=== PATIENT | male | born 1960 | race Caucasian/White ===

== ENCOUNTER 2022-04-24 14:31 | Inpatient (IN) | payer BC, OTHER ==
[2022-04-24] MEDS ORDERED: SODIUM CHLORIDE 0.9% 500 ML 500 ML IV STA (15:51)
[2022-04-24] MEDS ORDERED: ACETAMINOPHEN TAB 500 MG TAB PO STA (15:52)
[2022-04-24] MEDS ORDERED: IBUPROFEN 600 MG TAB PO STA (15:52)
--- NOTE | 2022-04-24 15:55 | ED ---
General Adult HPI - General Chief complaint: Abdominal Pain Stated complaint: ABD pain right side Time Seen by Provider: 04/24/22 15:45 Source: patient, RN notes reviewed, old records reviewed Mode of arrival: ambulatory Limitations: no limitations - History of Present Illness Initial comments: This is a 61-year-old male who presents emergency Department complaining of right lower quadrant abdominal pain. Patient states it started yesterday about 10:00 while he was in a meeting initially thought he was constipated but the pain is been persistent since and eating progressively worse per patient states the pain radiates a little bit down into his right testicle but it is not significant. Patient denies any dysuria hematuria urinary frequency. Patient has any radiation to the back. Patient denies any upper abdominal pain. Patient any vomiting or diarrhea. Patient denies any recent cough. Patient states he did difficulty vaccine but did not get any blisters. - Related Data Home Medications Medication Instructions Recorded Confirmed Enalapril [Vasotec] 5 mg PO DAILY 12/15/14 04/24/22 Dulaglutide [Trulicity] 0.75 mg SQ MO 04/24/22 04/24/22 metFORMIN HCL 500 mg PO DIRECTED 04/24/22 04/24/22 Allergies Allergy/AdvReac Type Severity Reaction Status Date / Time No Known Allergies Allergy Verified 04/24/22 16:45 Review of Systems ROS Statement: Those systems with pertinent positive or pertinent negative responses have been documented in the HPI. ROS Other: All systems not noted in ROS Statement are negative. Past Medical History Past Medical History: Diabetes Mellitus, Hyperlipidemia, Hypertension History of Any Multi-Drug Resistant Organisms: None Reported Past Surgical History: No Surgical Hx Reported Past Psychological History: No Psychological Hx Reported Smoking Status: Never smoker Past Alcohol Use History: Rare Past Drug Use History: None Reported General Exam - General Exam Comments Initial Comments: GENERAL: Patient is well-developed and well-nourished. Patient is nontoxic and well- hydrated and is in no acute distress. ENT: Neck is soft and supple. No significant lymphadenopathy is noted. Oropharynx is clear. Moist mucous membranes. Neck has full range of motion without eliciting any pain. EYES: The sclera were anicteric and conjunctiva were pink and moist. Extraocular movements were intact and pupils were equal round and reactive to light. Eyelids were unremarkable. PULMONARY: Unlabored respirations. Good breath sounds bilaterally. No audible rales rhonchi or wheezing was noted. CARDIOVASCULAR: There is a regular rate and rhythm without any murmurs gallops or rubs. ABDOMEN: Patient has right lower quadrant tenderness and some rebound. SKIN: Skin is clear with no lesions or rashes and otherwise unremarkable. NEUROLOGIC: Patient is alert and oriented x3. Cranial nerves II through XII are grossly intact. Motor and sensory are also intact. Normal speech, volume and content. Symmetrical smile. MUSCULOSKELETAL: Normal extremities with adequate strength and full range of motion. LYMPHATICS: No significant lymphadenopathy is noted PSYCHIATRIC: Normal psychiatric evaluation. Limitations: no limitations Course Vital Signs 04/24/22 14:59 Temperature 101.1 F H Pulse Rate 103 H Respiratory 16 Rate Blood Pressure 126/73 O2 Sat by Pulse 99 Oximetry Medical Decision Making - Medical Decision Making Computed tomography scan shows acute uncomplicated appendicitis. I started the patient on Zosyn. I spoke to Dr. Parekh she agreed to admit the patient admitted the patient wrote admitting orders. - Lab Data Result diagrams: 04/24/22 15:45 04/24/22 15:45 Lab Results 04/24/22 04/24/22 Range/Units 15:45 15:45 WBC 16.2 H (3.8-10.6) k/uL RBC 5.21 (4.30-5.90) m/uL Hgb 14.8 (13.0-17.5) gm/dL Hct 44.4 (39.0-53.0) % MCV 85.3 (80.0-100.0) fL MCH 28.3 (25.0-35.0) pg MCHC 33.2 (31.0-37.0) g/dL RDW 12.8 (11.5-15.5) % Plt Count 195 (150-450) k/uL MPV 8.7 Neutrophils % 87 % Lymphocytes % 6 % Monocytes % 6 % Eosinophils % 1 % Basophils % 0 % Neutrophils # 14.1 H (1.3-7.7) k/uL Lymphocytes # 0.9 L (1.0-4.8) k/uL Monocytes # 0.9 (0-1.0) k/uL Eosinophils # 0.1 (0-0.7) k/uL Basophils # 0.0 (0-0.2) k/uL Sodium 139 (137-145) mmol/L Potassium 4.3 (3.5-5.1) mmol/L Chloride 100 (98-107) mmol/L Carbon Dioxide 24 (22-30) mmol/L Anion Gap 15 mmol/L BUN 15 (9-20) mg/dL Creatinine 0.98 (0.66-1.25) mg/dL Est GFR (CKD-EPI)AfAm >90 (>60 ml/min/1.73 sqM) Est GFR (CKD-EPI)NonAf 83 (>60 ml/min/1.73 sqM) Glucose 166 H (74-99) mg/dL Calcium 9.6 (8.4-10.2) mg/dL Total Bilirubin 0.9 (0.2-1.3) mg/dL AST 30 (17-59) U/L ALT 31 (4-49) U/L Alkaline Phosphatase 62 (38-126) U/L Total Protein 7.8 (6.3-8.2) g/dL Albumin 4.7 (3.5-5.0) g/dL Amylase 56 (30-110) U/L Lipase 128 (23-300) U/L Disposition Clinical Impression: Acute appendicitis Disposition: ADMITTED IP TO THIS HOSP Referrals: Sana Bustamante MD [Primary Care Provider] - 1-2 days Time of Disposition: 18:01
[2022-04-24 16:21] LABS: Basophils % (A) 0 %; Eosinophils # (A) 0.1 k/uL (0-0.7); Eosinophils % (A) 1 %; HCT 44.4 % (39.0-53.0); HGB 14.8 gm/dL (13.0-17.5); Lymphocytes # (A) 0.9 k/uL (1.0-4.8); Lymphocytes % (A) 6 %; MCH 28.3 pg (25.0-35.0); MCHC 33.2 g/dL (31.0-37.0); MCV 85.3 fL (80.0-100.0); Mean Platelet Volume 8.7; Monocytes # (A) 0.9 k/uL (0-1.0); Monocytes % (A) 6 %; Neutrophils # (A) 14.1 k/uL (1.3-7.7); Neutrophils % (A) 87 %; Platelet Count 195 k/uL (150-450); RBC 5.21 m/uL (4.30-5.90); RDW 12.8 % (11.5-15.5); WBC 16.2 k/uL (3.8-10.6)
[2022-04-24 16:35] LABS: ALT 31 U/L (4-49); AST 30 U/L (17-59); African American GFR (CKD) >90 (>60 ml/min/1.73 sqM); Albumin 4.7 g/dL (3.5-5.0); Alkaline Phosphatase 62 U/L (38-126); Amylase 56 U/L (30-110); Anion Gap 15 mmol/L; Blood Urea Nitrogen 15 mg/dL (9-20); Calcium 9.6 mg/dL (8.4-10.2); Carbon Dioxide 24 mmol/L (22-30); Chloride 100 mmol/L (98-107); Glucose 166 mg/dL (74-99); Lipase 128 U/L (23-300); Non-African American GFR(CKD) 83 (>60 ml/min/1.73 sqM); Potassium 4.3 mmol/L (3.5-5.1); Sodium 139 mmol/L (137-145); Total Bilirubin 0.9 mg/dL (0.2-1.3); Total Protein 7.8 g/dL (6.3-8.2)
--- NOTE | 2022-04-24 17:32 | CT ---
EXAMINATION TYPE: CT abdomen pelvis w con CT DLP: 1158.2 mGycm, Automated exposure control for dose reduction was used. DATE OF EXAM: 04/24/2022 5:13 PM COMPARISON: None CLINICAL INDICATION:Male, 61 years old with history of abdominal pain; lower right abdominal pain TECHNIQUE: Axial CT of the abdomen and pelvis. Sagittal and coronal reformats were created on a [employer] workstation. Contrast used:100 mL of Isovue 300 with IV Contrast, Oral contrast used: without Oral Contrast FINDINGS: LOWER CHEST: Unremarkable ABDOMEN LIVER: Diffusely hypoattenuating parenchyma. GALLBLADDER AND BILE DUCTS: Unremarkable. PANCREAS: Unremarkable. SPLEEN: Unremarkable. ADRENAL GLANDS: Unremarkable. KIDNEYS AND URETERS: No evidence of hydronephrosis or renal calculus. The ureters are unremarkable. PELVIS BLADDER: Unremarkable REPRODUCTIVE: Prostate is enlarged in size measuring 6.7 cm in transverse dimension. ABDOMEN & PELVIS STOMACH AND BOWEL: Inflammation changes are seen within the right lower quadrant surrounding the appe ndix with the appendix dilated measuring up to 13 mm with feces within the appendix. There is a large appendicolith measuring up to 11 mm at the base of the appendix. PERITONEUM: No evidence of pneumoperitoneum or free fluid. VASCULATURE: No evidence of aortic aneurysm. MUSCULOSKELETAL: No acute osseous abnormalities, mild multilevel disc degeneration changes. LYMPH NODES: No gross evidence for lymphadenopathy. SOFT TISSUE/ABDOMINAL WALL: Unremarkable IMPRESSION: 1. Acute uncomplicated appendicitis with 10 mm appendicolith at the base. 2. Hepatic steatosis. 3. Prostatomegaly.
[2022-04-24] MEDS ORDERED: PIPERACILLIN-TAZOBACTAM 3.375 GM in SODIUM CHLORIDE 0.9% 100 ML IVPB STA (17:56)
[2022-04-24] MEDS ORDERED: SODIUM CHLORIDE 0.9% 1,000 ML IV ONE (18:01)
[2022-04-24] MEDS ORDERED: ACETAMINOPHEN IV (For NPO) 1,000 MG in EMPTY BAG 1 BAG IVPB ONE (18:40)
[2022-04-24] MEDS ORDERED: NALOXONE 0.4 MG/ML 1 ML VIAL IV PRN (18:40)
[2022-04-24] MEDS ORDERED: ONDANSETRON 4 MG/2 ML VIAL IVP PRN (18:40)
[2022-04-24] MEDS ORDERED: HYDROmorphone 0.5 MG/0.5 ML SYRINGE IVP PRN (18:40)
[2022-04-24 19:02] LABS: Appearance,Urine Clear (Clear); Bilirubin,Urine Negative (Negative); Blood,Urine Negative (Negative); Color,Urine Yellow; Glucose,Urine (UA) 3+ (Negative); Ketones,Urine 1+ (Negative); Leukocyte Esterase,Urine Negative (Negative); Mucus,Urine Occasional /hpf; Nitrite,Urine Negative (Negative); PH, Urine 5.5 (5.0-8.0); Protein,Urine 1+ (Negative); RBC,Urine 1 /hpf (0-5); Specific Gravity,Urine 1.014 (1.001-1.035); Urobilinogen,Urine <2.0 mg/dL (<2.0); WBC,Urine <1 /hpf (0-5)
--- NOTE | 2022-04-24 19:05 | P.GSHP ---
History of Present Illness H&P Date: 04/24/22 CHIEF COMPLAINT: Right lower quadrant abdominal pain with appendicitis for 2 days HISTORY OF PRESENT ILLNESS: The patient is a 61-year-old male who presents with over 1.5 day history of periumbilical with right lower quadrant abdominal pain that is crampy dull ache in nature. No reports of prior abdominal pain. He states the intensity of the pain is moderate but has improved today. He presented with CT abdomen and pelvis consistent with dilated appendix suspicious for appendicitis hence general surgery admission. PAST MEDICAL HISTORY: See list and reviewed PAST SURGICAL HISTORY: See list and reviewed CURRENT MEDICATIONS: See list and reviewed ALLERGIES: See list and reviewed SOCIAL HISTORY: See list and reviewed FAMILY HISTORY: See list and reviewed REVIEW OF ORGAN SYSTEMS: CONSTITUTIONAL: Present fever, no chills. Denies recent weight loss. HEENT: Denies any trouble with vision, hearing or nosebleeds. No difficulty swallowing. LYMPHATIC: The patient denies any lumps and bumps around the neck. ENDOCRINE: Denies any thyroid disorders. Diabetes type 2 [id number]-sfohevaad RESPIRATORY: Denies shortness of breath including chronic cough. CARDIOVASCULAR: Denies history of chest pain with exertion. Has hypertension. GASTROINTESTINAL: Denies regurgitation of bile at night as well as intermittent nausea. No blood in stools. GENITOURINARY: Denies any blood in urine or increased urinary frequency. MUSCULOSKELETAL: Denies current joint arthritis. NEUROLOGIC: Denies any numbness or tingling along the distal extremities. No seizure disorders or headaches. PSYCHIATRIC: Denies any depression or suicidal ideation. HEMATOLOGIC: Denies any abnormal bleeding or bruising. PHYSICAL EXAMINATION: VITALS: Reviewed. GENERAL: Well-developed and in no acute distress. Pleasant. HEENT: No sclera icterus. Extraocular movements grossly intact. Moist buccal mucosa. Head is atraumatic, normocephalic. Hears conversational speech. No nasal drainage. NECK: Supple without lymphadenopathy. No JV distention. CHEST: Non-labored respirations and equal bilateral excursions. CARDIOVASCULAR: Regular rate and rhythm. Palpable 2+ radial pulses. ABDOMEN: Soft, tender at the right lower quadrant without guarding. MUSCULOSKELETAL: No clubbing, cyanosis or edema. NEUROLOGIC: No focal or lateralizing signs. PSYCH: Appropriate affect. Alert and oriented to person, place and time. SKIN: Well perfused. Good skin turgor. LABS: Reviewed. White blood cell count elevated over 16,000. STUDIES: CT of the abdomen and pelvis reviewed with findings consistent with appendicitis. This is my independent interpretation. ASSESSMENT: 1. Acute appendicitis with right lower quadrant pain. 2. Diabetes type 2 3. Hypertensive heart disease PLAN: 1. I have discussed benefits and risks of robotic appendectomy. He is elevated risk due to diabetes and hypertension. 2. Bilateral SCDs for DVT prophylaxis including heparin. Past Medical History Past Medical History: Diabetes Mellitus, Hyperlipidemia, Hypertension History of Any Multi-Drug Resistant Organisms: None Reported Past Surgical History: No Surgical Hx Reported Past Psychological History: No Psychological Hx Reported Smoking Status: Never smoker Past Alcohol Use History: Rare Past Drug Use History: None Reported Medications and Allergies Home Medications Medication Instructions Recorded Confirmed Type Enalapril [Vasotec] 5 mg PO DAILY 12/15/14 04/24/22 History Dulaglutide [Trulicity] 0.75 mg SQ MO 04/24/22 04/24/22 History metFORMIN HCL 500 mg PO DIRECTED 04/24/22 04/24/22 History Allergies Allergy/AdvReac Type Severity Reaction Status Date / Time No Known Allergies Allergy Verified 04/24/22 16:45 Surgical - Exam Vital Signs Temp Pulse Resp BP Pulse Ox 101.1 F H 103 H 16 126/73 99 04/24/22 14:59 04/24/22 14:59 04/24/22 14:59 04/24/22 14:59 04/24/22 14:59 Results - Labs 04/24/22 15:45 04/24/22 15:45 Abnormal Lab Results - Last 24 Hours (Table) 04/24/22 04/24/22 04/24/22 Range/Units 15:45 15:45 18:36 WBC 16.2 H (3.8-10.6) k/uL Neutrophils # 14.1 H (1.3-7.7) k/uL Lymphocytes # 0.9 L (1.0-4.8) k/uL Glucose 166 H (74-99) mg/dL Urine Protein 1+ H (Negative) Urine Glucose (UA) 3+ H (Negative) Urine Ketones 1+ H (Negative) Urine Mucus Occasional H (None) /hpf Diabetes panel 04/24/22 Range/Units 15:45 Sodium 139 (137-145) mmol/L Potassium 4.3 (3.5-5.1) mmol/L Chloride 100 (98-107) mmol/L Carbon Dioxide 24 (22-30) mmol/L BUN 15 (9-20) mg/dL Creatinine 0.98 (0.66-1.25) mg/dL Glucose 166 H (74-99) mg/dL Calcium 9.6 (8.4-10.2) mg/dL AST 30 (17-59) U/L ALT 31 (4-49) U/L Alkaline Phosphatase 62 (38-126) U/L Total Protein 7.8 (6.3-8.2) g/dL Albumin 4.7 (3.5-5.0) g/dL Calcium panel 04/24/22 Range/Units 15:45 Calcium 9.6 (8.4-10.2) mg/dL Albumin 4.7 (3.5-5.0) g/dL Pituitary panel 04/24/22 Range/Units 15:45 Sodium 139 (137-145) mmol/L Potassium 4.3 (3.5-5.1) mmol/L Chloride 100 (98-107) mmol/L Carbon Dioxide 24 (22-30) mmol/L BUN 15 (9-20) mg/dL Creatinine 0.98 (0.66-1.25) mg/dL Glucose 166 H (74-99) mg/dL Calcium 9.6 (8.4-10.2) mg/dL Adrenal panel 04/24/22 Range/Units 15:45 Sodium 139 (137-145) mmol/L Potassium 4.3 (3.5-5.1) mmol/L Chloride 100 (98-107) mmol/L Carbon Dioxide 24 (22-30) mmol/L BUN 15 (9-20) mg/dL Creatinine 0.98 (0.66-1.25) mg/dL Glucose 166 H (74-99) mg/dL Calcium 9.6 (8.4-10.2) mg/dL Total Bilirubin 0.9 (0.2-1.3) mg/dL AST 30 (17-59) U/L ALT 31 (4-49) U/L Alkaline Phosphatase 62 (38-126) U/L Total Protein 7.8 (6.3-8.2) g/dL Albumin 4.7 (3.5-5.0) g/dL
[2022-04-24] MEDS ORDERED: HEPARIN SODIUM,PORCINE 5,000 UNIT/ML 1 ML VIAL ONE (20:25)
[2022-04-24] MEDS ORDERED: ROCURONIUM 10 MG/ML (5 ML VIAL) IV ONE (20:25)
[2022-04-24] MEDS ORDERED: ONDANSETRON 4 MG/2 ML VIAL ONE (20:25)
[2022-04-24] MEDS ORDERED: MIDAZOLAM 2 MG/2 ML VIAL ONE (20:25)
[2022-04-24] MEDS ORDERED: fentaNYL (PF) 50 MCG/ML 2 ML AMP ONE (20:25)
[2022-04-24] MEDS ORDERED: LIDOCAINE 2% INJ 20 MG/ML (2 ML VIAL) ONE (20:25)
[2022-04-24] MEDS ORDERED: DEXAMETHASONE SOD PHOSPHATE 10 MG/ML 1 ML VIAL ONE (20:25)
[2022-04-24] MEDS ORDERED: PROPOFOL 10 MG/ML 20 ML VIAL IV ONE (20:25)
[2022-04-24] MEDS ORDERED: GLYCOPYRROLATE 0.2 MG/ML 2 ML VIAL ONE (20:25)
[2022-04-24] MEDS ORDERED: KETOROLAC 30 MG/ML 1 ML VIAL ONE (20:25)
[2022-04-24] MEDS ORDERED: NEOSTIGMINE 1 MG/ML 10 ML VIAL ONE (20:25)
[2022-04-24] MEDS ORDERED: SUCCINYLCHOLINE CHLORIDE 200 MG/10 ML VIAL IV ONE (20:25)
[2022-04-24] MEDS ORDERED: BUPIVACAINE (PF) 0.25% 30 ML VIAL SQ ONE ×2 (20:27→20:55)
[2022-04-24] MEDS ORDERED: IV FLUID CONTINUATION 1,000 ML IV ONE ×2 (20:27)
[2022-04-24] MEDS ORDERED: SODIUM CHLORIDE 0.9% 50 ML with ceFAZolin 2,000 MG IV ONE ×2 (20:30)
[2022-04-24] MEDS ORDERED: HYDROmorphone 1 MG/ML 1 ML SYRINGE IVP PRN (21:44)
[2022-04-24] MEDS ORDERED: DEXTROSE 50% SYRINGE 50 ML IVP PRN ×2 (21:45)
--- NOTE | 2022-04-24 21:48 | P.OP ---
Date of Procedure: 04/24/22 Description of Procedure: SURGEON: NESTOR DARNELL MD Preoperative Diagnosis: 1. Acute appendicitis 2. Diabetes mellitus type 2, [id number] 3. Hypertensive heart disease Postoperative Diagnosis: 1. Acute appendicitis gangrene with localized peritonitis 2. Diabetes mellitus type 2, [id number] 3. Hypertensive heart disease Procedure(s) Performed: 1. Robotic-assisted daVinci Xi laparoscopic appendectomy Anesthesia: GETA, local Estimated Blood Loss (ml): 5 Pathology: other (appendix) Condition: stable Disposition: floor Operative Findings: 1. Acute appendicitis with localized peritonitis and necrosis/gangrene 2. Terminal ileum unremarkable 3. Cecum unremarkable INDICATIONS: The patient is a 61-year-old male who presents with acute appendicitis. Benefits and risks, including infection, open surgery, and bleeding for additional surgery was discussed at length. Informed consent was obtained. All questions of the patient and family were answered. DESCRIPTION: The patient was transferred to the operating room and placed in supine position. The patient had previously voided. The abdomen was then prepped and draped in standard sterile fashion as Ioban was placed along the abdomen to minimize any contamination of skin floor. After a timeout protocol was performed, attention was then brought to the left upper quadrant whereby a 0 degree 5 mm laparoscopic trocar entry was performed. The abdominal cavity was entered and insufflated to 12 mmHg pressure, which was tolerated well. Diagnostic laparoscopy demonstrated no injury to bowel, viscera or mesentery. Next a robotic 8-mm trocar was placed along the left lower quadrant, 10-cm lateral to the midline. A 12 mm port was placed along the left upper quadrant and another 8-mm port left lateral abdominal wall. Ports were placed 8 cm apart from each other including 15-20 cm away from the target anatomy of the right pelvis. The patient was then placed in Trendelenburg position, at least 14 down and right side up at least 7. The robotic da John XI system was primed and docked from the left side of the patient. Using atraumatic graspers and vessel sealer, the robotic system was docked and primed as described. Instruments were interchanged by the hygiene assistant including graspers, robotic stapler and vessel sealer. Next, attention was brought to identify the cecum. A systematic view within the abdominal cavity was started with the small bowel which was unremarkable. The base of the cecum was unremarkable. The body of the appendix was moderately dilated with moderate periappendicitis and gangrenous necrosis with localized peritonitis. No free perforation was identified. The appendix was dissected free from its surrounding tissues. Blue 45 mm robotic staple loads were fired along the base of the appendix. The staple line was hemostatic. Hemostasis was checked prior to undocking the robot. The robot was undocked. I re-scrubbed into the case. The specimen was removed from the abdominal cavity with an Endo Catch bag through the 12 mm trocar at the left upper quadrant. All instruments and pneumoperitoneum were evacuated from the abdominal cavity. Local anesthetic was infiltrated to all wounds for postop analgesia. All incisions were also cleansed with diluted hydrogen peroxide. The incisions were closed with 4-0 Monocryl. Exofin glue was applied to the rest of the skin incisions. The patient had tolerated the procedure well. The patient was extubated successfully. The patient was transferred to the postanesthesia care unit in stable condition. Intraoperative findings were discussed with the stepdaughter and .
[2022-04-24] MEDS: HEPARIN SODIUM,PORCINE/PF 5,000 UNIT/0.5 ML SYRINGE SQ SCH (22:55)
[2022-04-25] MEDS ORDERED: PIPERACILLIN-TAZOBACTAM 3.375 GM in SODIUM CHLORIDE 0.9% 100 ML IVPB SCH ×2
[2022-04-25] MEDS: TAMSULOSIN 0.4 MG CAP.ER.24H PO SCH ×3 (00:02→21:11)
[2022-04-25] MEDS: ACETAMINOPHEN TAB 500 MG TAB PO SCH ×5 (00:03→23:26)
[2022-04-25] MEDS: KETOROLAC 15 MG/ML 1 ML VIAL IVP SCH ×5 (00:03→23:26)
[2022-04-25] MEDS: PIPERACILLIN-TAZOBACTAM 3.375 GM in SODIUM CHLORIDE 0.9% 100 ML IVPB SCH ×4 (01:12→23:27)
[2022-04-25 09:00] LABS: Basophils # (A) 0.02 X 10*3/uL (0.00-0.10); Basophils % (A) 0.1 %; Eosinophils # (A) 0 X 10*3/uL (0.04-0.35); Eosinophils % (A) 0 %; HCT 36.9 % (39.6-50.0); HGB 12.1 g/dL (13.0-17.0); Immature Grans, Automated 0.7 %; Lymphocytes # (A) 0.73 X 10*3/uL (0.90-5.00); Lymphocytes % (A) 5.3 %; MCH 28.5 pg (27.0-32.0); MCHC 32.8 g/dL (32.0-37.0); MCV 86.8 fL (80.0-97.0); Mean Platelet Volume 11.9 fL (9.5-12.2); Monocytes # (A) 0.79 X 10*3/uL (0.20-1.00); Monocytes % (A) 5.7 %; NRBC Per 100 WBC 0 /100 WBCS (0.0-0.0); Neutrophils # (A) 12.18 X 10*3/uL (1.80-7.70); Neutrophils % (A) 88.2 %; Platelet Count 164 X 10*3/uL (140-440); RBC 4.25 X 10*6/uL (4.40-5.60); RDW 13.1 % (11.5-14.5); WBC 13.81 X 10*3/uL (4.50-10.00)
[2022-04-25 09:10] LABS: African American GFR (CKD) 74.7 (60.0-200.0); Albumin 3.7 g/dL (3.8-4.9); Albumin/Globulin Ratio 1.54 (1.60-3.17); BUN/Creat Ratio 12.33 Ratio (12.00-20.00); Blood Urea Nitrogen 14.8 mg/dL (9.0-27.0); Calcium 8.8 mg/dL (8.7-10.3); Globulin 2.4 g/dL (1.6-3.3); Magnesium 2.4 mg/dL (1.5-2.4); Non-African American GFR(CKD) 64.4 (60.0-200.0); Potassium 4.8 mmol/L (3.5-5.5); Total Bilirubin 0.3 mg/dL (0.30-1.20); Total Protein 6.1 g/dL (6.2-8.2)
[2022-04-25] MEDS: INSULIN ASPART (NovoLOG) 100 UNIT/ML VIAL SQ SCH ×4 (09:13→21:13)
[2022-04-25] MEDS: lisinopriL 10 MG TAB PO SCH (09:24)
[2022-04-25] MEDS: HEPARIN SODIUM,PORCINE/PF 5,000 UNIT/0.5 ML SYRINGE SQ SCH ×2 (09:24→21:11)
[2022-04-25 11:32] LABS: Glucose,Whole Blood 161 mg/dL (70-110)
--- NOTE | 2022-04-25 15:39 | P.PN ---
Subjective Progress Note Date: 04/25/22 CHIEF COMPLAINT: Acute appendicitis HISTORY OF PRESENT ILLNESS: Patient is status post robotic laparoscopic appendectomy. Postop day #1. Patient reports proven in his pain. He denies any nausea or vomiting. Did have some flatus. He also is expressing urinary retention. Unfortunately he did not receive his Flomax last night. He did have to be straight cathed. Patient does have history of enlarged prostate. Afebrile. WBC is down from 16.2-13.81 in the vomitus 12.1 platelets 164 sodium is 138 potassium is 4.8 creatinine 1.2 glucose 222 PHYSICAL EXAM: VITAL SIGNS: Reviewed GENERAL: Well-developed in no acute distress. HEENT: No sclera icterus. Extraocular movements grossly intact. Moist buccal mucosa. Head is atraumatic, normocephalic. Hears conversational speech. No nasal drainage. NECK: Supple without lymphadenopathy. CHEST: Non-labored respirations and equal bilateral excursions. CARDIOVASCULAR: Palpable 2+ radial pulses. ABDOMEN: Soft. Nondistended. Incision sites clean dry and intact MUSCULOSKELETAL: No clubbing or cyanosis. NEUROLOGIC: No focal or lateralizing signs. Cranial nerves II through XII grossly intact. PSYCH: Appropriate affect. Alert and oriented to person, place and time. SKIN: Well perfused. Good skin turgor. ASSESSMENT: 1. Acute appendicitis gangrene with localized peritonitis 2. Diabetes mellitus type 2, vvr-uyhrloh-eqwfxpgon 3. Hypertensive heart disease 4. Urinary retention PLAN: -Increase Flomax to twice a day for urinary retention -Continue to monitor WBC. We'll plan for discharge when white count has normalized -Continue antibiotics -Continue supportive care -Continue regular diet -Encourage patient to ambulate -DVT prophylaxis subcu heparin Physician Assembly Person note has been reviewed by physician. Signing provider agrees with the documented findings, assessment, and plan of care. Objective - Vital Signs Vital signs: Vital Signs Temp 97.8 F 04/25/22 14:00 Pulse 54 L 04/25/22 14:00 Resp 17 04/25/22 14:00 BP 124/72 04/25/22 14:00 Pulse Ox 98 04/25/22 14:00 FiO2 Intake & Output 04/24/22 04/25/22 04/25/22 18:59 06:59 18:59 Intake Total 1100 Output Total 5 900 Balance 1095 -900 Weight 85.729 kg 85.729 kg Intake: IV 850 Oral 250 Output: Urine 900 Straight 900 Estimated Blood Loss 5 Other: # Voids 1 - Labs CBC & Chem 7: 04/25/22 06:46 04/25/22 06:46 Labs: Abnormal Lab Results - Last 24 Hours (Table) 04/24/22 04/24/22 04/24/22 Range/Units 15:45 15:45 15:45 WBC 16.2 H (3.8-10.6) k/uL RBC (4.40-5.60) X 10*6/uL Hgb (13.0-17.0) g/dL Hct (39.6-50.0) % Immature Gran # (0.00-0.04) X 10*3/uL Neutrophils # 14.1 H (1.3-7.7) k/uL Lymphocytes # 0.9 L (1.0-4.8) k/uL Eosinophils # (0.04-0.35) X 10*3/uL Anion Gap (10.00-18.00) mmol/L Glucose 166 H (74-99) mg/dL POC Glucose (mg/dL) (70-110) mg/dL Hemoglobin A1c 6.5 H (0.0-6.0) % AST (14-35) U/L Total Protein (6.2-8.2) g/dL Albumin (3.8-4.9) g/dL Albumin/Globulin Ratio (1.60-3.17) g/dL Urine Protein (Negative) Urine Glucose (UA) (Negative) Urine Ketones (Negative) Urine Mucus (None) /hpf 04/24/22 04/25/22 04/25/22 Range/Units 18:36 06:46 06:46 WBC 13.81 H (3.8-10.6) k/uL RBC 4.25 L (4.40-5.60) X 10*6/uL Hgb 12.1 L (13.0-17.0) g/dL Hct 36.9 L (39.6-50.0) % Immature Gran # 0.09 H (0.00-0.04) X 10*3/uL Neutrophils # 12.18 H (1.3-7.7) k/uL Lymphocytes # 0.73 L (1.0-4.8) k/uL Eosinophils # 0 L (0.04-0.35) X 10*3/uL Anion Gap 9.00 L (10.00-18.00) mmol/L Glucose 222 H (74-99) mg/dL POC Glucose (mg/dL) (70-110) mg/dL Hemoglobin A1c (0.0-6.0) % AST 13 L (14-35) U/L Total Protein 6.1 L (6.2-8.2) g/dL Albumin 3.7 L (3.8-4.9) g/dL Albumin/Globulin Ratio 1.54 L (1.60-3.17) g/dL Urine Protein 1+ H (Negative) Urine Glucose (UA) 3+ H (Negative) Urine Ketones 1+ H (Negative) Urine Mucus Occasional H (None) /hpf 04/25/22 Range/Units 11:30 WBC (3.8-10.6) k/uL RBC (4.40-5.60) X 10*6/uL Hgb (13.0-17.0) g/dL Hct (39.6-50.0) % Immature Gran # (0.00-0.04) X 10*3/uL Neutrophils # (1.3-7.7) k/uL Lymphocytes # (1.0-4.8) k/uL Eosinophils # (0.04-0.35) X 10*3/uL Anion Gap (10.00-18.00) mmol/L Glucose (74-99) mg/dL POC Glucose (mg/dL) 161 H (70-110) mg/dL Hemoglobin A1c (0.0-6.0) % AST (14-35) U/L Total Protein (6.2-8.2) g/dL Albumin (3.8-4.9) g/dL Albumin/Globulin Ratio (1.60-3.17) g/dL Urine Protein (Negative) Urine Glucose (UA) (Negative) Urine Ketones (Negative) Urine Mucus (None) /hpf
[2022-04-25 16:34] LABS: Glucose,Whole Blood 196 mg/dL (70-110)
[2022-04-25 21:14] LABS: Glucose,Whole Blood 140 mg/dL (70-110)
[2022-04-26] MEDS: KETOROLAC 15 MG/ML 1 ML VIAL IVP SCH ×2 (05:41→12:14)
[2022-04-26] MEDS: ACETAMINOPHEN TAB 500 MG TAB PO SCH ×3 (05:41→17:05)
[2022-04-26 07:38] LABS: Glucose,Whole Blood 129 mg/dL (70-110)
[2022-04-26] MEDS: INSULIN ASPART (NovoLOG) 100 UNIT/ML VIAL SQ SCH ×3 (08:27→16:38)
[2022-04-26 08:58] LABS: Basophils # (A) 0.04 X 10*3/uL (0.00-0.10); Basophils % (A) 0.4 %; Eosinophils # (A) 0.16 X 10*3/uL (0.04-0.35); Eosinophils % (A) 1.8 %; HGB 11.1 g/dL (13.0-17.0); Immature Grans, Automated 0.4 %; Lymphocytes # (A) 2.64 X 10*3/uL (0.90-5.00); MCH 27.7 pg (27.0-32.0); MCHC 32.6 g/dL (32.0-37.0); MCV 84.8 fL (80.0-97.0); Monocytes # (A) 0.57 X 10*3/uL (0.20-1.00); Monocytes % (A) 6.3 %; NRBC Per 100 WBC 0 /100 WBCS (0.0-0.0); Neutrophils # (A) 5.64 X 10*3/uL (1.80-7.70); Neutrophils % (A) 62.1 %; Platelet Count 160 X 10*3/uL (140-440); RBC 4.01 X 10*6/uL (4.40-5.60); RDW 13.1 % (11.5-14.5); WBC 9.09 X 10*3/uL (4.50-10.00)
[2022-04-26] MEDS: HEPARIN SODIUM,PORCINE/PF 5,000 UNIT/0.5 ML SYRINGE SQ SCH (09:11)
[2022-04-26] MEDS: TAMSULOSIN 0.4 MG CAP.ER.24H PO SCH (09:11)
[2022-04-26] MEDS: PIPERACILLIN-TAZOBACTAM 3.375 GM in SODIUM CHLORIDE 0.9% 100 ML IVPB SCH ×2 (09:11→15:08)
[2022-04-26] MEDS: lisinopriL 10 MG TAB PO SCH (09:11)
[2022-04-26 09:21] LABS: ALT 39 U/L (10-49); AST 31 U/L (14-35); Albumin 3.5 g/dL (3.8-4.9); Albumin/Globulin Ratio 1.52 (1.60-3.17); Alkaline Phosphatase 46 U/L (41-126); BUN/Creat Ratio 16.87 Ratio (12.00-20.00); Blood Urea Nitrogen 25.3 mg/dL (9.0-27.0); Calcium 8.4 mg/dL (8.7-10.3); Carbon Dioxide 22.2 mmol/L (20.0-27.5); Chloride 105 mmol/L (96-109); Globulin 2.3 g/dL (1.6-3.3); Glucose 138 mg/dL (70-110); Non-African American GFR(CKD) 49.2 (60.0-200.0); Sodium 137 mmol/L (135-145); Total Bilirubin <0.15 mg/dL (0.30-1.20); Total Protein 5.8 g/dL (6.2-8.2)
[2022-04-26 11:16] LABS: Glucose,Whole Blood 127 mg/dL (70-110)
[2022-04-26 14:39] VITALS: BP 169/85; PULSE 49; RESP 14; TEMP 97.5
--- NOTE | 2022-04-26 15:53 | P.DS ---
Providers Date of admission: 04/25/22 13:13 Expected date of discharge: 04/26/22 Attending physician: Nahed Lozada Consults: 04/26/22 13:51 Consult Physician Routine Consulting Provider: Van Mitchell Consult Reason/Comments: urine retention Do you want consulting provider notified?: Yes Primary care physician: Sana Bustamante Hospital Course: Discharge diagnosis 1. Acute appendicitis gangrene with localized peritonitis 2. Diabetes mellitus type 2, [id number]-[id number]-[id number] 3. Hypertensive heart disease 4. Urinary retention Hospital course This 61-year-old male percent of the right lower quadrant abdominal pain. He is found have evidence of acute appendicitis with peritonitis. He is status post robotic-assisted laparoscopic appendectomy. Patient tolerated surgery well. His pain is controlled. He is tolerating diet. He is afebrile. His white count has normalized. He is having flatus. Patient was found to have urinary retention. He required Masterson catheter to be inserted. He was started on Flomax. Patient will be evaluated by urology prior to discharge. We'll await urology recommendations and possible discharge later today. Physician Radio Message Router note has been reviewed by physician. Signing provider agrees with the documented findings, assessment, and plan of care. Patient Condition at Discharge: Stable Plan - Discharge Summary Discharge Rx Participant: No New Discharge Prescriptions: New Amoxic-Pot Clav 875-125Mg [Augmentin Xr 875-125] 1 each PO Q12HR #10 tablet Ibuprofen [Motrin] 600 mg PO Q8HR PRN #30 tab PRN Reason: Pain Acetaminophen Tab [Tylenol Tab] 1,000 mg PO Q6HR PRN #30 tablet PRN Reason: Pain Simethicone [Gas-X] 125 mg PO AC-TID PRN #20 capsule PRN Reason: Pain Continue Enalapril [Vasotec] 5 mg PO DAILY Dulaglutide [Trulicity] 0.75 mg SQ MO metFORMIN HCL 500 mg PO DIRECTED Discharge Medication List Enalapril [Vasotec] 5 mg PO DAILY 12/15/14 [History] Dulaglutide [Trulicity] 0.75 mg SQ MO 04/24/22 [History] metFORMIN HCL 500 mg PO DIRECTED 04/24/22 [History] Acetaminophen Tab [Tylenol Tab] 1,000 mg PO Q6HR PRN #30 tablet 04/26/22 [Rx] Amoxic-Pot Clav 875-125Mg [Augmentin Xr 875-125] 1 each PO Q12HR #10 tablet 04/26/22 [Rx] Ibuprofen [Motrin] 600 mg PO Q8HR PRN #30 tab 04/26/22 [Rx] Simethicone [Gas-X] 125 mg PO AC-TID PRN #20 capsule 04/26/22 [Rx] Follow up Appointment(s)/Referral(s): Nahed Lozada MD [STAFF PHYSICIAN] - 04/30/22 (Telehealth) Sana Bustamante MD [Primary Care Provider] - 1-2 days Patient Instructions/Handouts: *Surgery [facility] - Managing Your Pain After Surgery Without Opioids, Appendicitis (GEN), Masterson Catheter Placement and Care (DC), Laparoscopic Appendectomy (GEN) Activity/Diet/Wound Care/Special Instructions: Recommend low-fat diet for the next 2 days. No lifting over 10 pounds in 2 weeks until May 08. May shower. No bath tub soaks for two weeks until May 08 Diet as tolerated. Use Tylenol, simethicone and ibuprofen or Aleve scheduled for the next 24-48 hours for best pain relief. Use ice along incisions for today to prevent swelling. Discharge Disposition: HOME SELF-CARE
[2022-04-26] MEDS ORDERED: IBUPROFEN 600 MG TAB PO PRN (16:03)
[2022-04-26 16:30] LABS: Glucose,Whole Blood 117 mg/dL (70-110)
[2022-04-26] MEDS ORDERED: AMOXIC-POT CLAV 875-125MG 1 EACH TAB PO SCH (21:00)
--- NOTE | 2022-04-27 11:38 | P.GSCN ---
History of Present Illness Reason for Consult: urinary retention History of present illness: This is 61-year-old male with urinary retention. He underwent a robotic appendectomy on April 24. Postoperatively developed urinary retention requiring CIC 3 with postvoid residual greater than 900 mL. Does have underly ing BPH at baseline, he indicates he has a weak stream and difficulty voiding. Has seen in the urologist in the past and was placed on Flomax but he discontinued it due to ineffectiveness and has not followed up since . Denies any gross hematuria or dysuria. No previous bladder prostate surgeries. Review of Systems - Constitutional Denies chills, Denies fever - EENT Ears, nose, mouth and throat: Denies dysphagia - Cardiovascular Denies chest pain, Denies shortness of breath - Respiratory Denies cough, Denies 7 - Gastrointestinal Reports as per HPI - Genitourinary Reports urinary retention Past Medical History Past Medical History: Diabetes Mellitus, Hyperlipidemia, Hypertension History of Any Multi-Drug Resistant Organisms: None Reported Past Surgical History: No Surgical Hx Reported Past Anesthesia/Blood Transfusion Reactions: No Reported Reaction Past Psychological History: No Psychological Hx Reported Smoking Status: Never smoker Past Alcohol Use History: Rare Past Drug Use History: None Reported Medications and Allergies Home Medications Medication Instructions Recorded Confirmed Type Enalapril [Vasotec] 5 mg PO DAILY 12/15/14 04/24/22 History Dulaglutide [Trulicity] 0.75 mg SQ MO 04/24/22 04/24/22 History metFORMIN HCL 500 mg PO DIRECTED 04/24/22 04/24/22 History Acetaminophen Tab [Tylenol Tab] 1,000 mg PO Q6HR PRN #30 tablet 04/26/22 Rx Amoxic-Pot Clav 875-125Mg 1 each PO Q12HR #10 tablet 04/26/22 Rx [Augmentin Xr 875-125] Ibuprofen [Motrin] 600 mg PO Q8HR PRN #30 tab 04/26/22 Rx Simethicone [Gas-X] 125 mg PO AC-TID PRN #20 capsule 04/26/22 Rx Tamsulosin [Flomax] 0.4 mg PO DAILY #7 cap 04/26/22 Rx Allergies Allergy/AdvReac Type Severity Reaction Status Date / Time No Known Allergies Allergy Verified 04/24/22 16:45 Surgical - Exam Vital Signs Temp Pulse Resp BP Pulse Ox 101.1 F H 103 H 16 126/73 99 10/05/22 14:59 04/24/22 14:59 04/24/22 14:59 04/24/22 14:59 04/24/22 14:59 - General no distress, no pain - Eyes normal ocular movement, no pale - ENT normal nares, normal mucosa - Respiratory normal expansion, normal respiratory effort - Abdomen Abdomen: soft, non tender, no distended - Psychiatric oriented to time, oriented to person, oriented to place Results - Labs 04/26/22 06:28 04/26/22 06:28 Abnormal Lab Results - Last 24 Hours (Table) 04/26/22 04/26/22 04/26/22 Range/Units 06:28 06:28 07:37 RBC 4.01 L (4.40-5.60) X 10*6/uL Hgb 11.1 L (13.0-17.0) g/dL Hct 34.0 L (39.6-50.0) % Anion Gap 9.80 L (10.00-18.00) mmol/L Est GFR (CKD-EPI)AfAm 57.0 L (60.0-200.0) Est GFR (CKD-EPI)NonAf 49.2 L (60.0-200.0) Glucose 138 H (70-110) mg/dL POC Glucose (mg/dL) 129 H (70-110) mg/dL Calcium 8.4 L (8.7-10.3) mg/dL Total Bilirubin <0.15 L (0.30-1.20) mg/dL Total Protein 5.8 L (6.2-8.2) g/dL Albumin 3.5 L (3.8-4.9) g/dL Albumin/Globulin Ratio 1.52 L (1.60-3.17) g/dL 04/26/22 04/26/22 Range/Units 11:15 16:29 RBC (4.40-5.60) X 10*6/uL Hgb (13.0-17.0) g/dL Hct (39.6-50.0) % Anion Gap (10.00-18.00) mmol/L Est GFR (CKD-EPI)AfAm (60.0-200.0) Est GFR (CKD-EPI)NonAf (60.0-200.0) Glucose (70-110) mg/dL POC Glucose (mg/dL) 127 H 117 H (70-110) mg/dL Calcium (8.7-10.3) mg/dL Total Bilirubin (0.30-1.20) mg/dL Total Protein (6.2-8.2) g/dL Albumin (3.8-4.9) g/dL Albumin/Globulin Ratio (1.60-3.17) g/dL Microbiology - Last 24 Hours (Table) 04/24/22 15:45 Blood Culture - Preliminary Blood No Growth after 48 hours 04/24/22 16:06 Blood Culture - Preliminary Blood No Growth after 48 hours Diabetes panel 04/26/22 Range/Units 06:28 Sodium 137 (135-145) mmol/L Potassium 4.0 (3.5-5.5) mmol/L Chloride 105 (96-109) mmol/L Carbon Dioxide 22.2 (20.0-27.5) mmol/L BUN 25.3 (9.0-27.0) mg/dL Creatinine 1.5 (0.6-1.5) mg/dL Glucose 138 H (70-110) mg/dL Calcium 8.4 L (8.7-10.3) mg/dL AST 31 (14-35) U/L ALT 39 (10-49) U/L Alkaline Phosphatase 46 (41-126) U/L Total Protein 5.8 L (6.2-8.2) g/dL Albumin 3.5 L (3.8-4.9) g/dL Calcium panel 04/26/22 Range/Units 06:28 Calcium 8.4 L (8.7-10.3) mg/dL Albumin 3.5 L (3.8-4.9) g/dL Pituitary panel 04/26/22 Range/Units 06:28 Sodium 137 (135-145) mmol/L Potassium 4.0 (3.5-5.5) mmol/L Chloride 105 (96-109) mmol/L Carbon Dioxide 22.2 (20.0-27.5) mmol/L BUN 25.3 (9.0-27.0) mg/dL Creatinine 1.5 (0.6-1.5) mg/dL Glucose 138 H (70-110) mg/dL Calcium 8.4 L (8.7-10.3) mg/dL Adrenal panel 04/26/22 Range/Units 06:28 Sodium 137 (135-145) mmol/L Potassium 4.0 (3.5-5.5) mmol/L Chloride 105 (96-109) mmol/L Carbon Dioxide 22.2 (20.0-27.5) mmol/L BUN 25.3 (9.0-27.0) mg/dL Creatinine 1.5 (0.6-1.5) mg/dL Glucose 138 H (70-110) mg/dL Calcium 8.4 L (8.7-10.3) mg/dL Total Bilirubin <0.15 L (0.30-1.20) mg/dL AST 31 (14-35) U/L ALT 39 (10-49) U/L Alkaline Phosphatase 46 (41-126) U/L Total Protein 5.8 L (6.2-8.2) g/dL Albumin 3.5 L (3.8-4.9) g/dL Assessment and Plan Assessment: 61-year-old male with postoperative urinary retention. Most likely secondary to underlying BPH, symptoms worsened due to recent surgery and anesthesia. Postvoid residuals greater than 900 mL -Recommend discharging home with Masterson catheter, can follow-up as an outpatient for trial of void in 7-10 days. Advised to remove his catheter 6 hours prior to his appointment -Continue Flomax, recommend discharging home on Flomax
[2022-04-29] MEDS ORDERED: NON FORMULARY DRUG (Dulaglutide [Trulicity] 0.75 MG/0.5 ML Each) SQ SCH (09:00)
--- NOTE | 2022-06-24 13:23 | CDI ---
"The patient has the following clinical indicators: Temp of 101.1F, WBC 16.2, HR 103 and 04/24, and Acute appendicitis upon admission later diagnosed as Acute appendicitis gangrene with localized peritonitis. Based on this information and the findings below, is there an additional diagnosis that is clinically appropriate for this patient? History/Risk Factors: 61 year-old male who presents to the Emergency Department with a chief complaint of lower right quadrant abdominal pain. Patient states it started the day prior and has been persistent since. Clinical Indicators: 04/24 ED note: Clinical Impression Acute appendicitis. Patient has right lower quadrant tenderness and some rebound. Computed tomography scan shows acute uncomplication appendicitis. I started the patient on Zosyn. 04/24 H&P: Acute appendicitis with right lower quadrant pain. Ct of the abdomen reviewed with findings consistent with appendicitis. This is my independent interpretation. I have discussed the benefits and risks of robotic appendectomy. He is elevated risk due to diabetes and hypertension. 04/24 Operative note: The body of the appendix was moderately dilated withy moderate gilbert-appendicitis and gangrenous necrosis with localized peritonitis. No free perforation was identified. The appendix was dissected free from its surrounding tissues. 04/[address] Garcia: Acute appendicitis gangrene with localized peritonitis - Patient is status post robotic laparoscopic appendectomy. Postop Day#1. Patient reports improvement in his painAfebrile. WBC is down from 46.213.81. continue to monitor WBC. Well plan for discharge when white count has normalized. 04/26 Discharge summary: Acute appendicitis gangrene with localized peritonitis His white count has normalizedpossible discharge later today WBC: 16.5 ->3.8 -> 9.09 04/24-04/26 Blood cultures: 04/24 No growth after 144 hours x2 Vitals signs on admission: 126/76 | HR 103 | RR 16 | Temp 101.1F Treatment: Zosyn 3.375gm Q8hr (04/24-04/26), Cefazolin 2gm Once Given Pre-op (04/24), Robotic laparoscopic appendectomy on 04/24. Is there an additional diagnosis that is clinically appropriate for this patient? [ X ] Sepsis, present on admission and treated this admission [ ] Sepsis ruled out [ ] Other, please specify [ ] Unable to determine SIRS Criteria: 2 or more of the following may indicate SIRS Temperature < 96.8F (36C) or > 101.0F (38.3C) Heart Rate > 90 bpm Respiratory Rate > 20 breaths/min or PaCO2 < 32 mmHg White Blood Cell Count > 12,000 or < 4,000 cells/mm3 or > 10% bands [ X ] Sepsis, present on admission and treated this admission [facility] 06/27/22 @ [address] [place] [address]"
== END 2022-04-26 18:13 | disposition home or self-care (01) | DRG 854 ==
LOC: EC 14:31 → 6NMEDSUR 18:16 → 4SSUR 18:34 → OBSVTOIN 04-25 13:13
PROVIDERS: ADMIT Surgery Plastic and Reconstructive Surgery; ATTEND Surgery Plastic and Reconstructive Surgery
PROC: 0DTJ4ZZ Resection of Appendix, Percutaneous Endoscopic Approach (ICD-10-PCS; principal; 2022-04-24 19:08)
PROC: 8E0W4CZ Robotic Assisted Procedure of Trunk Region, Percutaneous Endoscopic Approach (ICD-10-PCS; principal; 2022-04-24 19:08)
DX: A41.9 Sepsis, unspecified organism (principal); K35.31 Acute appendicitis with localized peritonitis and gangrene, without perforation; E11.9 Type 2 diabetes mellitus without complications; E78.5 Hyperlipidemia, unspecified; I11.9 Hypertensive heart disease without heart failure; T41.205A Adverse effect of unspecified general anesthetics, initial encounter; R33.8 Other retention of urine; N40.1 Benign prostatic hyperplasia with lower urinary tract symptoms; R39.12 Poor urinary stream; Z79.84 Long term (current) use of oral hypoglycemic drugs; Z79.899 Other long term (current) drug therapy; Z79.85 Long-term (current) use of injectable non-insulin antidiabetic drugs
CPT/HCPCS: 36415; 74177; 80053; 81001; 82150; 83036; 83690; 83735; 84100; 85025; 87040; 88304; 96365; 99285

== ENCOUNTER 2022-05-11 14:14 | Emergency (ER) | payer BC ==
[2022-05-11 14:23] VITALS: TEMP 98.6
--- NOTE | 2022-05-11 15:33 | ED ---
General Adult HPI - General Chief complaint: Urogenital Stated complaint: Catheter issues Time Seen by Provider: 05/11/22 14:55 Source: patient Mode of arrival: ambulatory Limitations: no limitations - History of Present Illness Initial comments: Patient is a 61-year-old male presenting with chief complaint of Masterson catheter complications. Patient has had recent issues with urinary retention for which he sees Dr. Fernandez. Patient had a Masterson catheter inserted yesterday in the office. He states that this morning he noticed that urine was not collected in the bag and he was having increased abdominal pressure. He repeatedly tried flushing the Masterson at home, this resulted in relief for a short period of time, then followed by repeated difficulties draining. He denies any back pain, fever, chills, nausea, vomiting, chest pain, difficulty breathing, palpitations, weakness. - Related Data Home Medications Medication Instructions Recorded Confirmed Enalapril [Vasotec] 5 mg PO DAILY 12/15/14 04/24/22 Dulaglutide [Trulicity] 0.75 mg SQ MO 04/24/22 04/24/22 metFORMIN HCL 500 mg PO DIRECTED 04/24/22 04/24/22 Previous Rx's Medication Instructions Recorded Acetaminophen Tab [Tylenol Tab] 1,000 mg PO Q6HR PRN #30 tablet 04/26/22 Amoxic-Pot Clav 875-125Mg 1 each PO Q12HR #10 tablet 04/26/22 [Augmentin Xr 875-125] Ibuprofen [Motrin] 600 mg PO Q8HR PRN #30 tab 04/26/22 Simethicone [Gas-X] 125 mg PO AC-TID PRN #20 capsule 04/26/22 Tamsulosin [Flomax] 0.4 mg PO DAILY #7 cap 04/26/22 Ciprofloxacin HCl [Cipro] 500 mg PO Q12HR 1 Days #6 tab 04/30/22 Allergies Allergy/AdvReac Type Severity Reaction Status Date / Time No Known Allergies Allergy Verified 05/11/22 14:19 Review of Systems ROS Statement: Those systems with pertinent positive or pertinent negative responses have been documented in the HPI. ROS Other: All systems not noted in ROS Statement are negative. Past Medical History Past Medical History: Diabetes Mellitus, Hyperlipidemia, Hypertension History of Any Multi-Drug Resistant Organisms: None Reported Past Surgical History: No Surgical Hx Reported Past Anesthesia/Blood Transfusion Reactions: No Reported Reaction Past Psychological History: No Psychological Hx Reported Smoking Status: Never smoker Past Alcohol Use History: Rare Past Drug Use History: None Reported General Exam Limitations: no limitations General appearance: alert, in no apparent distress Head exam: Present: atraumatic, normocephalic, normal inspection Eye exam: Present: normal appearance, PERRL, EOMI. Absent: scleral icterus, conjunctival injection, periorbital swelling Neck exam: Present: normal inspection Neurological exam: Present: alert, oriented X3, CN II-XII intact Psychiatric exam: Present: normal affect, normal mood Skin exam: Present: warm, dry, intact, normal color. Absent: rash Course Vital Signs 05/11/22 05/11/22 14:19 16:17 Temperature 98.6 F Pulse Rate 108 H 73 Respiratory 16 18 Rate Blood Pressure 131/85 135/63 O2 Sat by Pulse 99 98 Oximetry Medical Decision Making - Medical Decision Making Patient is a 61-year-old male presenting with chief complaint of Masterson catheter complications. Patient's Masterson catheter was placed on Friday by Dr. Paris. Patient states he had hematuria and required some flushing in the office. Patient states his urologist is aware of the hematuria. Patient states that the Masterson felt uncomfortable this time. Today the Masterson had difficulty draining. Patient was repeatedly flushing at home, which would only temporarily allow some drainage into the bag. Masterson catheter was replaced. Bladder scan showed measurement of 0 mL's. Monitored patient for any continued bleeding and clotting. On reassessment patient reports that Masterson was continuing to drain well and bleeding had decreased. Follow-up with urologist. Follow-up with PCP. Report back to ER with any new or worsening symptoms. Discussed return parameters and answered all questions. Patient conveyed verbal understanding and agreed to the plan. I discussed this case in detail with my attending Dr. White Disposition Clinical Impression: Encounter for Masterson catheter replacement Disposition: HOME SELF-CARE Condition: Good Instructions (If sedation given, give patient instructions): Masterson Catheter Placement and Care (ED) Additional Instructions: Follow-up with PCP and urology. Report back to ER with any new or worsening symptoms. Is patient prescribed a controlled substance at d/c from ED?: No Referrals: Sana Bustamante MD [Primary Care Provider] - 1-2 days Time of Disposition: 17:06
[2022-05-11] MEDS ORDERED: LIDOCAINE 2% URO-JET JELLY 5 ML KIT URETHRAL ONE (15:48)
[2022-05-11 16:17] VITALS: BP 135/63; PULSE 73; RESP 18
== END 2022-05-11 17:52 | disposition home or self-care (01) ==
LOC: EC 14:14
DX: Z46.6 Encounter for fitting and adjustment of urinary device (principal); E11.9 Type 2 diabetes mellitus without complications; E78.5 Hyperlipidemia, unspecified; I10 Essential (primary) hypertension; Z79.811 Long term (current) use of aromatase inhibitors; Z79.4 Long term (current) use of insulin; Z79.84 Long term (current) use of oral hypoglycemic drugs
CPT/HCPCS: 51702; 99283

== ENCOUNTER 2022-10-11 09:11 | Day surgery (SDC) | payer BC ==
[2022-10-08 15:55] VITALS: BMI 26.4
--- NOTE | 2022-10-11 07:10 | P.HPIHPCON ---
History of Present Illness H&P Date: 10/11/22 Chief Complaint: BPH This is a 62 yo male with hx of 145 gram prostate, has failed multiple TOV. option of robotic simple prostatectomy vs HOLEP was discussed with him in details. He agreed to proceed with a robotic simple prostatectomy. Discussed the risk of bleeding, infection, urinary incontinence, erectile dysfunction, retrograde ejaculation, strictures and persistent retention. Risk of injury to nearby organs which includes but not limited to the bladder, rectum, ureter was discussed. Risk of anesthesia was also discussed with him. He understood all the risk and agreed to proceed. Of note patient is Orthodox and has been refusing blood transfusion discussed potential for life-threatening bleeding during the case Consent for Procedure: I have explained the operation/procedure to the patient, including the risks, benefits, side effects, alternative therapies (including not receiving the proposed treatment or service), the likelihood of the patient achieving his/her goals, and potential recuperation problems for the procedure/sedation/analgesia, as well as any blood products, if indicated. I also explained to the patient the risks, benefits and side effects of the alternatives, as well as the risks related to not receiving the proposed procedure, care, treatment, or services. Past Medical History Past Medical History: Diabetes Mellitus, Hyperlipidemia, Hypertension, Prostate Disorder Additional Past Medical History / Comment(s): ENLARGED PROSTATE History of Any Multi-Drug Resistant Organisms: None Reported Past Surgical History: Appendectomy Past Anesthesia/Blood Transfusion Reactions: Motion Sickness Smoking Status: Never smoker - Past Family History Father Family Medical History: Cancer Medications and Allergies Home Medications Medication Instructions Recorded Confirmed Type Enalapril [Vasotec] 5 mg PO DAILY 12/15/14 10/08/22 History Dulaglutide [Trulicity] 0.75 mg SQ SA 04/24/22 10/08/22 History metFORMIN HCL 500 mg PO BID 04/24/22 10/08/22 History Acetaminophen Tab [Tylenol Tab] 1,000 mg PO Q6HR PRN #30 tablet 04/26/22 10/08/22 Rx Ibuprofen [Motrin] 600 mg PO Q8HR PRN #30 tab 04/26/22 10/08/22 Rx Ciprofloxacin HCl [Cipro] 500 mg PO Q12HR 1 Days #6 tab 04/30/22 10/08/22 Rx Simethicone [Gas-X] 125 mg PO AC-TID PRN 10/08/22 10/08/22 History Allergies Allergy/AdvReac Type Severity Reaction Status Date / Time No Known Allergies Allergy Verified 10/08/22 15:13 Surgical - Exam - General no distress, no pain - Eyes normal ocular movement, no pale - ENT normal nares, normal mucosa - Respiratory normal expansion, normal respiratory effort - Abdomen Abdomen: soft, non tender Assessment and Plan Assessment: OR for robotic simple prostatectomy
[~2022-10-11 09:11] MED LIST: DEXAMETHASONE SOD PHOSPHATE 4 MG/ML 1 ML VIAL IV ONE; HEPARIN SODIUM,PORCINE/PF 5,000 UNIT/0.5 ML SYRINGE SQ PRN; HYDROmorphone 0.5 MG/0.5 ML SYRINGE IVP PRN; LIDOCAINE 1% (10MG/ML) FOR IV START INTRADERMA PRN; MIDAZOLAM 2 MG/2 ML VIAL IV PRN; ONDANSETRON 4 MG/2 ML VIAL IVP ONE
[2022-10-11] MEDS: LACTATED RINGERS 1,000 ML IV SCH (09:54)
[2022-10-11 10:14] LABS: Glucose,Whole Blood 109 mg/dL (70-110)
[2022-10-11] MEDS ORDERED: SIMETHICONE 80 MG CHEWABLE PO PRN (10:35)
[2022-10-11] MEDS ORDERED: ONDANSETRON 4 MG/2 ML VIAL IVP PRN (10:36)
[2022-10-11] MEDS ORDERED: GLYCOPYRROLATE 0.2 MG/ML 2 ML VIAL ONE (10:42)
[2022-10-11] MEDS ORDERED: ROCURONIUM 10 MG/ML (5 ML VIAL) IV ONE (10:42)
[2022-10-11] MEDS ORDERED: fentaNYL (PF) 50 MCG/ML 2 ML AMP ONE (10:42)
[2022-10-11] MEDS ORDERED: LIDOCAINE 2% INJ 20 MG/ML (2 ML VIAL) ONE (10:42)
[2022-10-11] MEDS ORDERED: MIDAZOLAM 2 MG/2 ML VIAL ONE (10:42)
[2022-10-11] MEDS ORDERED: PROPOFOL 10 MG/ML 20 ML VIAL IV ONE (10:42)
[2022-10-11] MEDS ORDERED: HYDROmorphone (PF) 1 MG/ML ONE (10:42)
[2022-10-11] MEDS ORDERED: NEOSTIGMINE 1 MG/ML 10 ML VIAL ONE (10:42)
[2022-10-11] MEDS ORDERED: BUPIVACAINE (PF) 0.5% 30 ML VIAL SQ ONE ×2 (11:41)
[2022-10-11] MEDS ORDERED: LACTATED RINGERS 1,000 ML IV ONE (13:05)
--- NOTE | 2022-10-11 13:20 | P.OP ---
Date of Procedure: 10/11/22 Preoperative Diagnosis: BPH, urinary retention Postoperative Diagnosis: same Procedure(s) Performed: robotic simple prostatectomy Implants: none Anesthesia: JUAN PABLO Surgeon: Van Mitchell Senior Administrative Assistant #1: Deanna Johnson Estimated Blood Loss (ml): 100 Pathology: other (prostate adenoma) Condition: stable Disposition: PACU Indications for Procedure: This is a 62 yo male with hx of 145 gram prostate, has failed multiple TOV. op tion of robotic simple prostatectomy vs HOLEP was discussed with him in details. He agreed to proceed with a robotic simple prostatectomy. Discussed the risk of bleeding, infection, urinary incontinence, erectile dysfunction, retrograde ejaculation, strictures and persistent retention. Risk of injury to nearby organs which includes but not limited to the bladder, rectum, ureter was discussed. Risk of anesthesia was also discussed with him. He understood all the risk and agreed to proceed. Of note patient is Episcopalian and has been refusing blood transfusion discussed potential for life-threatening bleeding during the case Operative Findings: After preoperative antibiotics were started, the patient was taken to the operating room. Anesthesia was induced and the patient was placed in a supine position with adequate padding of the pressure points, shoulders, back, legs and arms. He was then prepped and draped in the standard fashion. A critical pause was performed using two patient identifiers. A 16F schofield catheter was placed to gravity drainage. A pneumoperitoneum was obtained using a Veress needle, after pneumoperitoneum was obtained a 8 mm camera port was placed. Under direct vision a 8mm robotic ports was placed lateral to each rectus slightly below the camera port. The left iliac fossa 8mm port was placed. The right floral assistant right iliac fossa 12mm port and right paramedian 5mm portwere placed. After the patient was placed in the trendelenberg position, the robot was then docked to the 8mm robotic ports and then each robotic arm and tower was checked in relation to the patient's legs and hands to avoid inadvertent compression. The peritoneal cavity was inspected. Adhesions were taken down along the left lower quadrant An inverted U-shaped incision began laterally to the left medial umbilical ligament and extended high across the midline to the right umbilical ligament. The limbs of the "U" extended to the level of the vasa on both sides. We next developed the preperitoneal space and the space of Retzius. Cautery was used to dissected the bladder away from the prostate, the incision was made in close proximity to the prostate, and incision was extended laterally and at this point the plane between the adenoma and the surgical capsule is identified. Both ureteral orifices were identified and neither was injured during the dissection . The adenoma was dissected off of the capsule by combination of blunt dissection and minimum cautery. dissection was initially started along the anterior surface and posterior surface of adenoma, and this was carried laterally. The dissection was carried to the apex, at this point the urethral-prostatic junction was visualized and the prostate was transected at th e junction. Prostate adenoma was placed in an endocatch bag . A 6and 6 inch 3- 0 V-Lock suture was used to anastomose the urethra and bladder, starting at the 6:00 posterior position. Mucosa was secured in every stitch, to ensure a mucosa to mucosa anastomosis. The stitch was regularly cinched and the anastomosis tightened. . The 20 Fr Schofield catheter was advanced, the bladder filled, and the anastomosis was tested. Anastomsis was watertight at 150 mL. balloon was inflated to 10 mL. hemostatic agent was applied to the surgical field. The robot was undocked. specimen was extracted from the supraumbilical incision. The periumbilical fascia was closed with 1-0-PDS suture in figure of 8 fashion. All ports were closed with a subcuticular 4-0 monocryl and Dermabond. Sponge, instrument, and needle counts were correct at the end of the case x2. The patient tolerated the surgery well and without complication. He awoke without difficulty and was taken to the recovery room in stable condition
[2022-10-11] MEDS ORDERED: HYDROmorphone 0.5 MG/0.5 ML SYRINGE IVP ONE ×3 (13:57→14:25)
[2022-10-11] MEDS ORDERED: KETOROLAC 15 MG/ML 1 ML VIAL IVP ONE (14:32)
[2022-10-11] MEDS: KETOROLAC 15 MG/ML 1 ML VIAL IVP SCH ×3 (15:44→23:57)
[2022-10-11] MEDS: SODIUM CHLORIDE 0.9% 1,000 ML IV SCH ×2 (15:44→23:57)
[2022-10-11] MEDS: HYDROmorphone 1 MG/ML 1 ML SYRINGE IVP PRN ×3 (18:02→22:29)
[2022-10-11] MEDS: HEPARIN SODIUM,PORCINE/PF 5,000 UNIT/0.5 ML SYRINGE SQ SCH (18:04)
[2022-10-11] MEDS: metFORMIN 500 MG TAB PO SCH (18:05)
[2022-10-11] MEDS ORDERED: hydrALAZINE HCL 20 MG/ML 1 ML VIAL IVP PRN (18:23)
[2022-10-11] MEDS ORDERED: DEXTROSE 50% SYRINGE 50 ML IVP PRN ×2 (18:24)
[2022-10-11] MEDS: amLODIPine 10 MG TAB PO SCH (18:32)
[2022-10-11] MEDS: METOPROLOL SUCCINATE (ER) 50 MG TAB.ER.24H PO SCH ×2 (18:32→23:26)
[2022-10-11 19:12] LABS: Basophils % (A) 0 %; Eosinophils % (A) 0 %; HCT 44.4 % (39.0-53.0); HGB 14.3 gm/dL (13.0-17.5); Lymphocytes # (A) 0.4 k/uL (1.0-4.8); Lymphocytes % (A) 4 %; MCH 27.7 pg (25.0-35.0); MCHC 32.3 g/dL (31.0-37.0); MCV 85.8 fL (80.0-100.0); Mean Platelet Volume 8.3; Monocytes # (A) 0.7 k/uL (0-1.0); Monocytes % (A) 6 %; Neutrophils # (A) 10.3 k/uL (1.3-7.7); Neutrophils % (A) 89 %; Platelet Count 183 k/uL (150-450); RBC 5.17 m/uL (4.30-5.90); RDW 13.1 % (11.5-15.5); WBC 11.6 k/uL (3.8-10.6)
--- NOTE | 2022-10-11 19:20 | XR ---
EXAMINATION TYPE: XR chest 1V portable DATE OF EXAM: 10/11/2022 COMPARISON: NONE HISTORY: Pain TECHNIQUE: Single view FINDINGS: Heart and mediastinum are normal. Lungs are clear. Diaphragm is normal. There are some mild emphysematous changes in the upper lobes. There are chest leads. There is some lucency about at the right diaphragm consistent with a pneumoperitoneum. IMPRESSION: There is a pneumoperitoneum consistent with recent surgery. No pulmonary consolidation or heart failure. COPD.
[2022-10-11 19:23] LABS: ALT 33 U/L (4-49); AST 30 U/L (17-59); African American GFR (CKD) 67 (>60 ml/min/1.73 sqM); Albumin 4.4 g/dL (3.5-5.0); Albumin/Globulin Ratio 1.4; Alkaline Phosphatase 66 U/L (38-126); Anion Gap 11 mmol/L; Blood Urea Nitrogen 19 mg/dL (9-20); Carbon Dioxide 23 mmol/L (22-30); Chloride 104 mmol/L (98-107); Globulin 3.1 g/dL; Glucose 142 mg/dL (74-99); Non-African American GFR(CKD) 58 (>60 ml/min/1.73 sqM); Potassium 4.9 mmol/L (3.5-5.1); Sodium 138 mmol/L (137-145); Total Bilirubin 0.6 mg/dL (0.2-1.3); Total Protein 7.5 g/dL (6.3-8.2)
[2022-10-11 19:53] VITALS: RESP 18
[2022-10-11 20:21] LABS: Glucose,Whole Blood 158 mg/dL (70-110)
[2022-10-11] MEDS: INSULIN ASPART (NovoLOG) 100 UNIT/ML VIAL SQ SCH (20:22)
[2022-10-11] MEDS: HYDROcodone/APAP 5-325MG 1 EACH TAB PO PRN (20:23)
[2022-10-11] MEDS: CIPROFLOXACIN HCL 500 MG TAB PO SCH (20:23)
[2022-10-12] MEDS: HYDROcodone/APAP 5-325MG 1 EACH TAB PO PRN ×2 (00:50→14:43)
[2022-10-12] MEDS: HEPARIN SODIUM,PORCINE/PF 5,000 UNIT/0.5 ML SYRINGE SQ SCH ×2 (01:54→08:35)
[2022-10-12] MEDS: HYDROmorphone 1 MG/ML 1 ML SYRINGE IVP PRN ×3 (01:54→08:39)
[2022-10-12] MEDS: LACTATED RINGERS 1,000 ML IV SCH (05:29)
--- NOTE | 2022-10-12 05:31 | CONS ---
CONSULTATION REASON FOR CONSULTATION: Advice regarding hypertension and other metabolic issues, requested by urologist. HISTORY OF PRESENT ILLNESS: This 62-year-old gentleman with a past medical history of multiple medical issues, including diabetes, hypertension, and hyperlipidemia, being followed Dr. Sana Bustamante in the outpatient setting, underwent a robotic simple prostatectomy. The blood pressure was found to be high and the blood pressure elevated up to 185/117 with a heart rate of 120. The patient is being closely monitored at this time. There is no history of fever, rigors, or chills at this time. PAST MEDICAL HISTORY: History of diabetes mellitus, hypertension, and hyperlipidemia. MEDICATIONS PRIOR TO ADMISSION: 1. Metformin. 2. Trulicity. 3. Vasotec. Rest of the medications are noted and doses also reviewed. ALLERGIES: None known. FAMILY HISTORY: History of cancer in the family. SOCIAL HISTORY: No history of smoking or alcohol intake. REVIEW OF SYSTEMS: A 14-point review is negative as mentioned earlier. PHYSICAL EXAMINATION: VITAL SIGNS: Pulse is 129, regular, blood pressure n NECK: No jugular venous distention. CARDIOVASCULAR: S1 and S2. Tachycardic. RESPIRATORY: Breath sounds are diminished at the bases. No rhonchi. No crackles. ABDOMEN: Soft and nontender. LEGS: No edema. NERVOUS SYSTEM: No focal deficit. SKIN: No ulcer, rash, bleeding. JOINTS: No active deforming arthropathy. LABORATORIES: Not available. ASSESSMENT: 1. Accelerated hypertension and hypertensive urgency. 2. Status post robotic simple prostatectomy. 3. History of hypertension. 4. Hyperlipidemia. 5. Diabetes mellitus, type 2. RECOMMENDATIONS: This 62-year-old gentleman presented after surgery. At this time, the patient is having tachycardia as well as accelerated hypertension and hypertensive urgency. The exact cause is unknown at this time. I recommend beta-blockers, metoprolol, and Norvasc and also continue telemetry, EKG, basic labs including troponin, and hydralazine p.r.n. with the blood pressure. We will also recommend a chest x- ray if the blood pressure is persistently elevated, a Cardiology consultation may be obtained; otherwise, we will continue to monitor. Further recommendations to follow. Home medications may be resumed. MMODL / IJN: [id number] / [facility]
[2022-10-12] MEDS: KETOROLAC 15 MG/ML 1 ML VIAL IVP SCH ×2 (05:50→12:18)
[2022-10-12 07:33] LABS: Glucose,Whole Blood 126 mg/dL (70-110)
[2022-10-12] MEDS: INSULIN ASPART (NovoLOG) 100 UNIT/ML VIAL SQ SCH ×2 (07:46→12:22)
[2022-10-12] MEDS: CIPROFLOXACIN HCL 500 MG TAB PO SCH (08:35)
[2022-10-12] MEDS: amLODIPine 10 MG TAB PO SCH (08:35)
[2022-10-12] MEDS: METOPROLOL SUCCINATE (ER) 50 MG TAB.ER.24H PO SCH (08:35)
[2022-10-12] MEDS: lisinopriL 10 MG TAB PO SCH ×2 (08:35→08:41)
[2022-10-12] MEDS: metFORMIN 500 MG TAB PO SCH (08:35)
[2022-10-12] MEDS ORDERED: ACETAMINOPHEN TAB 325 MG TAB PO PRN (08:58)
[2022-10-12] MEDS ORDERED: NON FORMULARY DRUG (Dulaglutide [Trulicity] 0.75 MG/0.5 ML Each) SQ SCH (09:00)
[2022-10-12 11:13] LABS: Basophils # (A) 0.06 X 10*3/uL (0.00-0.10); Basophils % (A) 0.5 %; Eosinophils # (A) 0.03 X 10*3/uL (0.04-0.35); Eosinophils % (A) 0.3 %; HCT 40.7 % (39.6-50.0); HGB 12.7 g/dL (13.0-17.0); Immature Grans, Automated 0.4 %; Lymphocytes # (A) 1.67 X 10*3/uL (0.90-5.00); MCH 27.3 pg (27.0-32.0); MCHC 31.2 g/dL (32.0-37.0); MCV 87.5 fL (80.0-97.0); Mean Platelet Volume 11.5 fL (9.5-12.2); Monocytes # (A) 1.03 X 10*3/uL (0.20-1.00); Monocytes % (A) 8.6 %; NRBC Per 100 WBC 0 /100 WBCS (0.0-0.0); Neutrophils # (A) 9.13 X 10*3/uL (1.80-7.70); Neutrophils % (A) 76.2 %; Platelet Count 183 X 10*3/uL (140-440); RBC 4.65 X 10*6/uL (4.40-5.60); RDW 13.2 % (11.5-14.5); WBC 11.97 X 10*3/uL (4.50-10.00)
[2022-10-12 11:21] LABS: African American GFR (CKD) 52.4 (60.0-200.0); Anion Gap 13.3 mmol/L (10.00-18.00); BUN/Creat Ratio 13.19 Ratio (12.00-20.00); Blood Urea Nitrogen 21.1 mg/dL (9.0-27.0); Calcium 8.9 mg/dL (8.7-10.3); Carbon Dioxide 22.7 mmol/L (20.0-27.5); Non-African American GFR(CKD) 45.2 (60.0-200.0); Potassium 4.5 mmol/L (3.5-5.5)
[2022-10-12 12:22] LABS: Glucose,Whole Blood 196 mg/dL (70-110)
--- NOTE | 2022-10-12 14:37 | P.DS ---
Providers Expected date of discharge: 10/12/22 Attending physician: Van Mitchell MD Consults: 10/11/22 18:12 Consult Physician Stat Consulting Provider: Macy Peñaloza Consult Reason/Comments: medical management Do you want consulting provider notified?: Already Contacted Primary care physician: Sana Bustamante Hospital Course: On the day of admission, the patient underwent an uncomplicated robotic-assisted laparoscopic simple prostatectomy. Postoperatively, he was noted to be hypertensive. He was evaluated by Dr. Peñaloza. On the day of discharge, he was normotensive with stable vital signs. He had not ambulated. He was tolerating diet without nausea. He reported mild incisional discomfort. On examination, the abdomen was soft and non-distended. Incisions were clean, dry, and intact. The Masterson catheter was draining urine which was pink in color without clots. Procedures: Robotic-assisted laparoscopic simple prostatectomy in 10/11/2022 Patient Condition at Discharge: Good Plan - Discharge Summary Discharge Rx Participant: No New Discharge Prescriptions: New Ciprofloxacin HCl [Cipro] 250 mg PO Q12HR 1 Days #6 tab Ketorolac [Toradol] 10 mg PO Q6HR PRN #12 tab PRN Reason: Pain No Action Enalapril [Vasotec] 5 mg PO DAILY Ibuprofen [Motrin] 600 mg PO Q8HR PRN #30 tab PRN Reason: Pain Acetaminophen Tab [Tylenol Tab] 1,000 mg PO Q6HR PRN #30 tablet PRN Reason: Pain Ciprofloxacin HCl [Cipro] 500 mg PO Q12HR 1 Days #6 tab Dulaglutide [Trulicity] 0.75 mg SQ SA metFORMIN HCL 500 mg PO BID Simethicone [Gas-X] 125 mg PO AC-TID PRN PRN Reason: ABD PAIN Discharge Medication List Enalapril [Vasotec] 5 mg PO DAILY 12/15/14 [History] Dulaglutide [Trulicity] 0.75 mg SQ SA 04/24/22 [History] metFORMIN HCL 500 mg PO BID 04/24/22 [History] Acetaminophen Tab [Tylenol Tab] 1,000 mg PO Q6HR PRN #30 tablet 04/26/22 [Rx] Ibuprofen [Motrin] 600 mg PO Q8HR PRN #30 tab 04/26/22 [Rx] Ciprofloxacin HCl [Cipro] 500 mg PO Q12HR 1 Days #6 tab 04/30/22 [Rx] Simethicone [Gas-X] 125 mg PO AC-TID PRN 10/08/22 [History] Ciprofloxacin HCl [Cipro] 250 mg PO Q12HR 1 Days #6 tab 10/12/22 [Rx] Ketorolac [Toradol] 10 mg PO Q6HR PRN #12 tab 10/12/22 [Rx] Follow up Appointment(s)/Referral(s): Van Mitchell MD [STAFF PHYSICIAN] - 10/23/22 Activity/Diet/Wound Care/Special Instructions: Discharge home with Masterson catheter. Instruct patient to use overnight drainage bag as well as urinary leg bag. Okay to shower. Diet as tolerated. No lifting, driving, or strenuous activity. Reassure patient that abdominal wall ecchymosis and penoscrotal swelling are normal. Instruct patient to begin taking antibiotics one day prior to Masterson catheter removal. Discharge Disposition: HOME SELF-CARE
[2022-10-12 14:39] VITALS: BP 120/63; PULSE 72; TEMP 98.8
[2022-10-12] MEDS: SODIUM CHLORIDE 0.9% 1,000 ML IV SCH (14:42)
--- NOTE | 2022-10-12 16:24 | PN ---
PROGRESS NOTE DATE OF SERVICE: 10/12/2022 SUBJECTIVE: This is a 62-year-old gentleman who was admitted after surgery with accelerated hypertension and tachycardia. The blood pressure has improved significantly today. No chest pain. No palpitation. OBJECTIVE: VITAL SIGNS: Pulse is 67, blood pressure 110/60, respirations 18. CHEST: Clear to auscultation. CARDIOVASCULAR: S1 and S2. ABDOMEN: Soft. NERVOUS SYSTEM: No focal deficits. LABORATORY DATA: Reviewed. DIAGNOSTIC DATA: Chest x-ray reviewed. ASSESSMENT: 1. Accelerated hypertension and hypertensive urgency, postop improved. 2. Status post robotic simple prostatectomy. 3. History of hypertension. 4. History of hyperlipidemia. 5. Diabetes mellitus, type 2. RECOMMENDATIONS: Recommend to continue current medications. Continue symptomatic treatment. The patient has improved significantly. I would recommend to resume the home medications and follow closely with primary physician. Check blood pressure at home. Further recommendations to follow. MMODL / IJN: [id number] /
== END 2022-10-12 15:14 | disposition home or self-care (01) ==
LOC: OR 09:11 → 5NMEDONC 13:25 → OR 10-12 15:14
PROVIDERS: ATTEND Urology
DX: N40.1 Benign prostatic hyperplasia with lower urinary tract symptoms (principal); R33.8 Other retention of urine; E11.9 Type 2 diabetes mellitus without complications; E78.5 Hyperlipidemia, unspecified; I10 Essential (primary) hypertension; I16.0 Hypertensive urgency; J44.9 Chronic obstructive pulmonary disease, unspecified; Z79.84 Long term (current) use of oral hypoglycemic drugs; Z90.79 Acquired absence of other genital organ(s)
CPT/HCPCS: 94760; 93005; 80053; 80048; 85025 ×2; 83036; 71045; 55867; J2250; J1100; J0690; J2405; J1170 ×3; J1885 ×2; J1644 ×2